=== PATIENT | male | born 1965 | race Asian ===

== ENCOUNTER 2020-12-05 20:40 | Emergency (ER) | payer BC ==
[~2020-12-05] VITALS: Ht 165.1 cm; Wt 72.7 kg
[2020-12-05] MEDS ORDERED: IBUPROFEN 600 MG TABLET PO ONE (23:30)
[2020-12-05 23:40] VITALS: BP 142/85
== END 2020-12-05 23:47 | disposition home or self-care (01) ==
LOC: EMS 20:44
DX: S00.11XA Contusion of right eyelid and periocular area, initial encounter (principal); W22.8XXA Striking against or struck by other objects, initial encounter; Y93.89 Activity, other specified; Y92.89 Other specified places as the place of occurrence of the external cause; Y99.8 Other external cause status
CPT/HCPCS: 70486; 99284; Z7502; Z7610